=== PATIENT | female | born 1960 | race Caucasian/White ===

== ENCOUNTER 2016-11-23 07:55 | Day surgery (SDC) | payer OTHER ==
--- NOTE | 2016-11-22 14:00 | HISTORY AND PHYSICAL ---
ADMITTED: 11/23/2016 HISTORY OF PRESENT ILLNESS: The patient is a 55-year-old female, states on last , she was wearing a different pair of boots, took an abnormal step and felt her right foot kind of get forcefully forced upward and she felt some sharp, shooting pains in the right lower leg. She said the pain shot up all the way to her calf and towards her knee. She has had a history of a painful Achilles area, which we have tried some conservative approaches and even did a corticosteroid injection just inferior to the musculotendinous junction, which she states did not help. She states when she tried on these boots with a little bit of a heel, they were a little too big and she took a couple of missteps. She noticed the pain was present, states she went down to feel and she could feel a gap between the ends of the Achilles. MEDICAL/SURGICAL HISTORY: Past medical history includes a history of hypertension as well as previous chemical dependency. Past surgical history: Hiatal hernia repair in 2012, was hospitalized in 1977 for suspected appendicitis. I did a surgical procedure on her left foot in 2013. PRIMARY CARE PROVIDER: Ira Baez, [facility] MEDICATIONS: 1. Prempro 0.4/1.5 mg tab by mouth daily. ALLERGIES: 1. NO KNOWN DRUG OR FOOD ALLERGIES. SOCIAL HISTORY: She is partnered, employed as a leasing manager, currently smokes at least a half a pack per day. FAMILY HISTORY: Diabetes. REVIEW OF SYSTEMS: A 10-point review of systems noncontributory to chief complaint. PHYSICAL EXAMINATION: GENERAL: The patient is alert, oriented x3. HEENT: PERRLA. Normocephalic. HEART: Regular rate and rhythm. Regular S1 and S2. LUNGS: Clear to auscultation. No wheezes, rhonchi, or rales. ABDOMEN: Soft, nontender, nondistended. Normal bowel sounds. No palpable masses. EXTREMITIES: Lower Extremity Vascular: DP and PT pulses are palpable. Skin texture and turgor within normal limits. There is ecchymosis localized to the posterior aspect of the right lower extremity. There is an abnormal Justice test with calf compression and squeezing. There is no plantar flexion of the ankle joint. There is a notable 3 cm gap between the proximal and distal ends of the tendo-Achilles. IMPRESSION: 1. Acute rupture of the tendo-Achilles, right lower extremity. PLAN: The patient will be scheduled for an outpatient procedure. This is of a primary repair of the tendo-Achilles. She is well aware of the procedure and convalescence. There are no contraindications to surgery. Surgery is scheduled on outpatient basis at [facility] on 11/23/2016.
[~2016-11-23] VITALS: Ht 167.6 cm; Wt 86.9 kg
[~2016-11-23 07:55] MED LIST: PREMPRO1 TA1 PO
--- NOTE | 2016-11-23 08:22 | DIAGNOSTIC IMAGING REPORT ---
PROCEDURE: XR CHEST 1 VIEW INDICATION: Preop for Achilles repair. TECHNIQUE: Single view chest. 07:40 hours COMPARISON: None FINDINGS: The cardiopulmonary contour and central vasculature are stable, within normal limits. The lungs are clear without focal consolidation, pleural effusion or pneumothorax. The osseous structures are intact. IMPRESSION: 1. No evidence of acute cardiopulmonary disease.
--- NOTE | 2016-11-23 08:39 | NUR ---
PRE OP INSTRUCTIONS GIVEN AND SAFETY ISSUES DISCUSSED PT AND FAMILY HAD QUESTIONS ANSWERED PT CONFIRMED PROCEDURE PT VERIFIED SIGNATURE PT MARKED SITE
[2016-11-23] MEDS ORDERED: ZOFRAN4 MG PO (11:31)
[2016-11-23] MEDS ORDERED: PERCOCET1 TA4 PO (11:31)
--- NOTE | 2016-11-23 11:33 | Provider's Discharge Care Plan ---
Problem, Goal, Plan Problem List 1. Spontaneous rupture of other tendons, right ankle and foot Goals: Improve function Instructions: Follow up as directed
--- NOTE | 2016-11-23 11:33 | Provider's Discharge Care Plan ---
Problem, Goal, Plan Problem List 1. Spontaneous rupture of other tendons, right ankle and foot Goals: Improve function Instructions: Follow up as directed
--- NOTE | 2016-11-23 12:45 | OPERATIVE REPORT ---
DATE OF SURGERY: 11/23/2016 SURGEON: Da Mo DPM PREOPERATIVE DIAGNOSES: 1. Acute spontaneous rupture of Achilles tendon, right foot POSTOPERATIVE DIAGNOSES: 1. Acute spontaneous rupture of Achilles tendon, right foot PROCEDURE PERFORMED: 1. Primary repair Achilles tendon, right foot. ANESTHESIA: General. HEMOSTASIS: Achieved by pneumatic thigh tourniquet inflated to 300 mmHg pressure. TOURNIQUET TIME: Total tourniquet time 73 minutes. MATERIALS: Used 3-0 and 4-0 Polysorb and Arthrex midsubstance repair kit consisting of #2 FiberWire and 2 SwiveLocks. COMPLICATIONS: None. INJECTABLES: Injected 20 mL of 0.25% bupivacaine with epinephrine 1:200,000. CONDITION: The patient tolerated anesthesia and procedure well. INDICATIONS: The Patient is a 55-year-old female on 11/15/2016 she was walking in some very large boots and felt a pull and stabbing pain in her calf. We have been treating her conservatively for acute Achilles tendinitis and had her wearing higher heels. Said she misstepped forcefully causing the foot to dorsiflex in the boot and she ruptured her tendon. She was seen in the office with a noted abnormal Justice's test and an appreciable gap between the proximal and distal ends of the tendon. Well aware of the planned procedure of a primary repair, there are no contraindications to surgery at this time. SURGICAL TECHNIQUE: The patient was brought into the operating room on the [facility]. She was anesthetized and put on a general anesthetic, then a pneumatic tourniquet was then placed above the right knee. She was then placed on the operating table in a prone position. The right lower extremity was prepped and draped in normal sterile fashion. An intraoperative pause was carried out for positive identification, proper limb, and consent form verified and confirmed. The leg was then exsanguinated with an Esmarch bandage. The tourniquet was then inflated. Attention was then directed to procedure #1. Procedure #1: Primary repair of the tendo-Achilles, Spontaneous rupture, right: At this time, a linear incision was made approximately 4.5 cm spanning the gap of the proximal and distal stumps vertically and running parallel with the Achilles tendon. It was deepened by meticulous dissection, the paratenon was visualized and then incised. The severed ends of the Achilles were identified and the hematoma was cleaned up. The ends were then fashioned and coapted with 3-0 Polysorb to hold the integrity of the tendon on its linear split going from distal to proximal. The area was flushed and removed any remaining hematoma. A large sponge stick was utilized to then advance the proximal end of the tendon distally and visualized. An Allis clamp was then utilized from the distal stump to bring it back into view. The pars jig was utilized to pass the FiberWire accordioned in the proximal stump. Stab incisions were then made distally at the insertion point. 3-4 drill holes were then made tapped accordingly and then a suture lasso was then passed up through the distal stump, capturing the FiberWire from the medial section of the proximal stump. Driving it back through, foot held in a plantar flexed position. The suture of FiberWire was then inserted into the bone with a secure end-to-end repair of the tendon. An additional #2 Polysorb was then used centrally to secure the end-to-end anastomosis. The area was flushed. The paratenon was repaired with 3-0 Polysorb, subcutaneous tissue with 4-0 and skin edges were then closed in a running fashion with 4-0 Polysorb, the stab incisions at the insertion point of the remaining FiberWire was cut. The areas were flushed and the skin edges were reapproximated with 4-0 Polysorb. The area was then locally anesthetized with the aforementioned local anesthetic. Prior to leaving the operating room, she was placed in a prefabricated Ortho-Glass posterior splint. The patient tolerated the procedure well without complication.
--- NOTE | 2016-11-23 12:47 | NUR ---
PT IS AWAKE AND ALERT PRIOR TO D/C FROM PACU. PT STATES THAT HER MODERATE RIGHT LEG PAIN IS DOWN TO MILD. PT DENIES NAUSEA. VSS. RIGHT LEG IS ELEVATED ON TWO PILLOWS, ICE PLACED BEHIND PT'S KNEE PER MD ORDER. MD TALKED TO PT IN PACU. QUESTIONS ANSWERED.
--- NOTE | 2016-11-23 14:25 | NUR ---
PT RETURNED FROM PACU AT 1240 RIGHT FOOT ELEVATED ICE BEHIND KNEE CAP REFILL LESS THAN 3 SEC PT C/O DISCOMFORT. PT WAS MEDICATED BY MIREYA PT STATED PAIN WAS LESS 35 MINUTES AFTER PO MED AT 1410 PT ASKING TO GO HOME REVIEWED DISCHARGE INSTRUCTIONS VERBAL AND WRITTEN PT AND S/O EXPRESSED UNDERSTANDING PT DISCHARGED PER WC ACCOMPANIED BY S/O AND MOTHER
[2016-11-23 15:21] VITALS: BP 120/81
== END 2016-11-23 14:32 | disposition home or self-care (01) ==
LOC: OR SRH 07:55 → SCU SRH 07:57 → OR SRH 09:30
PROVIDERS: Podiatrist
PROC: 0LUN0JZ Supplement Right Lower Leg Tendon with Synthetic Substitute, Open Approach (ICD-10-PCS; principal; 2016-11-23 09:30)
DX: S86.011A Strain of right Achilles tendon, initial encounter (principal); X58.XXXA Exposure to other specified factors, initial encounter; Z72.0 Tobacco use
CPT/HCPCS: 29229; 29240; 50002; 60001; 70002; 80102; 81249; 82129; 83419; 83432; 83860; 84038; 84081; 84147; 84327; 90100; 95059

== ENCOUNTER 2017-01-25 11:17 | Day surgery (SDC) | payer OTHER ==
--- NOTE | 2017-01-24 19:45 | HISTORY AND PHYSICAL ---
ADMITTED: 01/25/2017 CHIEF COMPLAINT: 1. Rupture of Achilles tendon HISTORY OF PRESENT ILLNESS: The patient is a 56-year-old female seen in the office. On 11/23/2016, I primarily repaired an acute Achilles tendon rupture via an Arthrex pars jig. It healed up and was healing nicely. She had a slight wound dehiscence, which was cultured and treated with Zyvox. However, on 01/06/2017 she tripped over her dog and jammed her right foot. As a result, she reruptured Achilles tendon and the incision became further dehisced and actually was iatrogenically opened up. The FiberTape and wire was visualized in the wound itself. The ends, which were approximated nicely subsequent to the first surgery, had now been torn apart. MEDICAL/SURGICAL HISTORY: Past medical history: Includes a history of hypertension, as well as previous chemical dependency. Past surgical history: Hiatal hernia repair 2012, hospitalized 1977 for suspected appendicitis. I carried out a surgical procedure on her left foot in 2013, as well as the aforementioned right Achilles tendon repair on 11/23/2016. PRIMARY CARE PROVIDER: Ira Baez PA-C MEDICATIONS: 1. Prempro 0.4/1.5 mg tablet, 1 by mouth daily. ALLERGIES: 1. REPORTS NO KNOWN DRUG OR FOOD ALLERGIES. SOCIAL HISTORY: She is partnered, employed as a general farm manager. Currently smokes at least a half pack per day. FAMILY HISTORY: Diabetes. REVIEW OF SYSTEMS: Ten-point review of systems noncontributory to chief complaint. PHYSICAL EXAMINATION: GENERAL: The patient is alert, oriented x3. HEENT: PERRLA. Normocephalic. HEART: Regular rate and rhythm. Regular S1 and S2. LUNGS: Clear to auscultation. No wheezing, rhonchi, or rales. ABDOMEN: Soft, tender, nondistended. No palpable masses. Normal tones. EXTREMITIES: Lower extremity/Vascular: DP and PT pulses are palpable. Skin texture and turgor within normal limits. Posteriorly, the linear incision is coapted nicely with 1 small area of still dehiscence. There is appreciable gap approximately 3 cm between the proximal and distal ends of the tendo-Achilles. Justice test is positive as a result of the FiberTape being in place. IMPRESSION: 1. Self-induced trauma, which resulted in a re-rupture of the tendo-Achilles, right. PLAN: The patient is scheduled for a primary repair with graft augmentation of the Achilles tendon. Date of surgery is 01/25/2017 at [facility].
[~2017-01-25] VITALS: Ht 170.2 cm; Wt 85.7 kg
[2017-01-25] VITALS (8 sets, daily range): BP systolic 146–161; BP diastolic 84–104
[~2017-01-25 11:17] MED LIST changes: +PERCOCET1 TA4 PO; +ZOFRAN4 MG PO
--- NOTE | 2017-01-25 15:34 | Provider's Discharge Care Plan ---
Problem, Goal, Plan Problem List 1. Spontaneous rupture of other tendons, right ankle and foot Goals: Improve function Instructions: Follow up as directed
--- NOTE | 2017-01-25 15:34 | Provider's Discharge Care Plan ---
Problem, Goal, Plan Problem List 1. Spontaneous rupture of other tendons, right ankle and foot Goals: Improve function Instructions: Follow up as directed
--- NOTE | 2017-01-25 21:50 | OPERATIVE REPORT ---
DATE OF SURGERY: 01/25/2017 SURGEON: Da Mo DPM PREOPERATIVE DIAGNOSIS: 1. Rupture of the tendo-Achilles, right (rerupture) POSTOPERATIVE DIAGNOSIS: 1. Rupture of the tendo-Achilles, right (rerupture) PROCEDURE PERFORMED: 1. Repair of a reruptured tendo-Achilles, right ANESTHESIA: General. HEMOSTASIS: Achieved by a thigh tourniquet above the right knee, inflated to 275 mmHg pressure. TOURNIQUET TIME: Total tourniquet time 110 minutes. MATERIALS: 3-0 Polysorb, #2 FiberWire and 1 ArthroFlex 4 x 7 dermal graft. INJECTABLES: Injected 20 mL of 0.5% bupivacaine plain. COMPLICATIONS: None. CONDITION: The patient tolerated anesthesia, procedure well. INDICATIONS: The patient is a 56-year-old female who reruptured her tendo- Achilles. I originally repaired a primary Achilles tendon rupture on 11/23/2016. She was healing uneventfully, was walking gingerly with partial weightbearing and then her dog cut in front of her, she was not wearing a protective boot and/or splint at the time and then traumatically went forward, tripped and fell and reruptured tendo-Achilles. She is well aware of the planned procedure. She has completed a course of antibiotics of Zyvox, which she grew out a methicillin-sensitive Staphylococcus aureus. There are no contraindications to surgery at this time. SURGICAL TECHNIQUE: The patient was brought to the operating room on a gurney. While on the gurney a general anesthetic was administered. A pneumatic tourniquet was then placed above the right knee. The patient was then placed on the operating table in a prone position. The right lower extremity was then prepped and draped in the normal sterile fashion. An intraoperative pause was carried out with positive identification, proper limb, consent form verified and confirmed. Esmarch bandage was then utilized to exsanguinate the limb. Tourniquet was then inflated. Attention was directed to procedure #1. Delayed repair of a reruptured tendo-Achilles. At this time, the linear incision , which was temporarily recoapted or approximated in the office with nylon sutures, they were removed. A linear incision was then made proximal to the musculotendinous junction and then distally down towards the insertion point. It was deepened by sharp and blunt dissection. Paratenon was incised at approximately 6 cm proximal to its insertion point. The rupture was visualized. As soon as the incision was made, the FiberTape was visualized, as well. It was partially displaced distally. Two stab incisions were then made on the medial, lateral aspects of the heel, respectively, where the anchors had appeared to have been dislodged and they were located and then one was removed laterally totally and then medially the portion of the anchor was removed with 1 portion broken off, which was 95% of the SwiveLock was removed. The area was flushed. There was no evidence of residual infection distally. Suture was then removed in toto proximally as well. The tendon ends distally were reapproximated with 3-0 Polysorb to a nice secure stump. Proximally there was significant rupture of the proximal stump with hematoma visualized and was evacuated, the ends were freshened up. Then the proximal stump was then tubularized with 3-0 Polysorb. In a Krackow type stitch proximally with #2 FiberWire the proximal end was secured. An additional 2-0 FiberWire was then used distally in a Krackow running Parisa type stitch. The foot was then plantar flexed and the ends were brought end-to-end. They were secured with an overlying stitch with #2 FiberWire. At this time, the ArthroFlex dermal graft was then placed, secured to the tendons with 3 -0 Polysorb and then wrapped end-to-end encompassing the repair. It was secured to itself with 3-0 Polysorb. Paratenon was reapproximated with 3-0 Polysorb. Skin edge was then reapproximated in a running fashion with 3-0 nylon, as well as the 2 stab incisions on the medial, lateral aspects of the heel, respectively. Approximately 20 mL of blood loss was noted. Tourniquet was released at 110 minutes. A light compressive dressing was applied and anterior splint with the foot plantar flexed was applied. The patient tolerated anesthesia, procedure well and left the operating room with vital signs stable. While in recovery, written instructions for absolute nonweightbearing at all times discussed or instructions dispensed. Did speak with the family in the waiting area of our findings, pictures were taken and copies dispensed to the family members as well. They are on board with our findings and strict adherence to nonweightbearing at all times, more than likely for an 8-12 week period, at this point. Prognosis is guarded. She will be discharged to home in stable condition upon clearance from anesthesia.
== END 2017-01-25 21:00 | disposition home or self-care (01) ==
LOC: SCU SRH 11:17 → OR SRH 11:17
PROVIDERS: Podiatrist
PROC: 0LUN0KZ Supplement Right Lower Leg Tendon with Nonautologous Tissue Substitute, Open Approach (ICD-10-PCS; principal; 2017-01-25 12:00)
DX: S86.011A Strain of right Achilles tendon, initial encounter (principal); T84.223A Displacement of internal fixation device of bones of foot and toes, initial encounter; W01.0XXA Fall on same level from slipping, tripping and stumbling without subsequent striking against object, initial encounter; Z72.0 Tobacco use
CPT/HCPCS: 29229; 29240; 50002; 60001; 70002; 80102; 80212; 80356; 80830; 80861; 80865; 81279; 83419; 84038; 84044; 84081; 90074; 90100; 95059